=== PATIENT | female | born 1985 | race Caucasian/White ===

== ENCOUNTER → 2017-02-03 | Day surgery (SDC) | payer OTHER ==
[~2017-02-03] VITALS: Ht 160 cm; Wt 68.0 kg
--- NOTE | 2017-02-17 13:31 | Operative Report ---
Operative/Inv Procedure Report Surgery Date: 02/03/17 Name of Procedure: Cold knife cone ECC Pre-Operative Diagnosis: HSIL Post-Operative Diagnosis: Same Estimated Blood Loss: less than 50ml Surgeon/[employer] Worker: TEDDY CHERY MD Anesthesia: local monitored anesthesi Operative/Procedure Note Note: Procedure patient was taken the operating room placed supine position after adequate anesthesia patient placed in dorsolithotomy position the vagina prepped draped so fashion bladder was catheterized examination anesthesia performed at this point on a stay suture [id number] was placed 3 and 9 on cervix the cervical artery and Marcaine was injected 39 cervix is well patient tolerated that well at this point on Pitressin was injected into the cervix on 7 placed on the cervix I the area of concern was removed and a Robles on the endocervical curettage with a Wilfredoian curette was performed afterwards. On at this point the on Robles edges were reapproximated for hemostasis using a running locking suture of 0 I as well as a rollerball on the wrist JOSE STA was placed into the surgical difficulty I feel patient tolerated that well on since removed from the vagina the patient was returned spine position she was awakened from anesthesia and transferred recovery room awake alert counts correct Findings: Consistent with colposcopy
== END ==
LOC: STS 04:05
DX: D06.1 Carcinoma in situ of exocervix (principal); A63.0 Anogenital (venereal) warts; M79.7 Fibromyalgia; K21.9 Gastro-esophageal reflux disease without esophagitis; Z79.899 Other long term (current) drug therapy
CPT/HCPCS: 81025; 88305; 88307; J2250

== ENCOUNTER → 2017-03-04 | Day surgery (SDC) | payer OTHER ==
[~2017-03-04] VITALS: Ht 160 cm; Wt 68.0 kg
[~2017-03-04] MED LIST: FENTANYL1 EAC4 TOP; FENTANYL1 EAC5 TOP; XANAX0.5 M1 PO
--- NOTE | 2017-03-10 12:11 | Operative Report ---
Operative/Inv Procedure Report Surgery Date: 03/04/17 Name of Procedure: Excision of two inclusion cysts #1 right axilla, diameter 1 cm, 2-1/2 cm layered closure, #2 right scapular region diameter 1 1/2 cm, closure 3 cm layered = 5-1/ 2 cm total closure Pre-Operative Diagnosis: Recurrent symptomatic inclusion cysts axilla and back Post-Operative Diagnosis: Same Estimated Blood Loss: scant Surgeon/Bilingual Patient Support Caseworker: RODERICK HERNANDEZ,ANJALI Mustafa Anesthesia: local monitored anesthesi Operative/Procedure Note Note: Patient was positioned supine. After successful induction, her right axilla was clipped prepped and draped in usual sterile fashion. An incision was aimed over to adjacent mildly erythematous bumps, the incision was elliptical including some overlying skin and the sinus after injecting local anesthetic the incision was made with a 15 blade and then deepened with cautery and staying close to the capsule of the cyst was excised completely there was one here. This incision was closed in layers using 3-0 Vicryl sutures subdermally and then with interrupted 4-0 Biosyn sutures subcuticular. By Mastisol Steri-Strips Telfa and Tegaderm. Then the patient was turned to expose the upper right back area was prepped and draped in usual sterile fashion as well there was scarring here from previous infected cyst and a close examination the abscess cavity that healed was separate from the actual remnant cyst I felt it important to remove the cyst so we aimed an incision little angular to include part of the healed abscess cavity scar but also elliptical with skin to include the sinus of the cyst. And this was excised in similar fashion to the one in the axilla one piece 1 cyst including some abscess cavity scar. This was also closed in layers using 3-0 Vicryl interrupted subcutaneously and then multiple interrupted vertical subcuticular 4-0 Biosyn sutures, followed by Mastisol, Steri-Strips and Band- Aids. Overall estimated blood loss was minimal, lap and sponge counts were correct, wound expectancy was clean, IV fluids crystalloid, complications none, patient tolerated the procedure well, did not significantly howard during extubation and was returned to the recovery room in satisfactory condition.
== END ==
LOC: STS 01:52
DX: L72.0 Epidermal cyst (principal); M79.7 Fibromyalgia; Z79.899 Other long term (current) drug therapy
CPT/HCPCS: 81025; 88304; J0131; J0690; J2250